=== PATIENT | male | born 1955 | race American Indian/Alaskan Native ===

== ENCOUNTER 2021-05-07 12:50 | Emergency (ER) | payer OTHER ==
[~2021-05-07] VITALS: Ht 172.7 cm; Wt 45.4 kg
[2021-05-07 13:34] LABS: BASOPHILS ABSOLUTE AUTO 0.03 K/mm3 (0.00-0.23); BASOPHILS PERCENT AUTO 0 % (0-2); EOSINOPHILS ABSOLUTE AUTO 0.01 K/mm3 (0.00-0.68); EOSINOPHILS PERCENT AUTO 0 % (0-6); Hematocrit 32.7 % (37.0-53.0); Hemoglobin 10.2 g/dL (13.5-17.5); IMMATURE GRAN ABSOLUTE AUTO 0.09 K/mm3 (0.00-0.10); IMMATURE GRAN PERCENT AUTO 1 % (0-1); LYMPHOCYTES ABSOLUTE AUTO 1.25 K/mm3 (0.84-5.20); LYMPHOCYTES PERCENT AUTO 9 % (21-46); MONOCYTES ABSOLUTE AUTO 0.54 K/mm3 (0.16-1.47); MONOCYTES PERCENT AUTO 4 % (4-13); Mean Corpuscular HGB 24.9 pg (26.0-34.0); Mean Corpuscular HGB Conc 31.2 g/dL (31.5-36.5); Mean Corpuscular Volume 80 fL (80-100); Mean Platelet Volume 8.1 fL (9.1-12.4); NEUTROPHILS ABSOLUTE AUTO 12.65 K/mm3 (1.96-9.15); NEUTROPHILS PERCENT AUTO 87 % (41-73); Platelet Count 504 K/mm3 (150-400); RDW Coefficient Variation 17.6 % (11.7-14.2); RDW Standard Deviation 51.3 fL (35.1-46.3); White Blood Cell Count 14.57 K/mm3 (4.00-11.30)
[2021-05-07 13:58] LABS: Alanine Aminotransfer (ALT/SGP 11 U/L (12-78); Albumin, Blood 1.3 g/dL (3.4-5.0); Albumin/Globulin Ratio 0.2 (0.8-1.8); Alk Phos 130 U/L (50-136); Anion Gap 10 mmol/L (6-16); Aspartate Aminotrans (AST/SGOT 14 U/L (12-37); Bilirubin, Total 0.6 mg/dL (0.1-1.0); Blood Urea Nitrogen 12 mg/dL (8-24); Bun/Creatinine Ratio 14.6 (12.0-20.0); CO2, Blood 23 mmol/L (21-32); Chloride, Blood 101 mmol/L (98-108); Creatinine, Blood 0.82 mg/dL (0.60-1.20); Globulin, Blood 5.8 g/dL (2.2-4.0); Glomerular Filtration Rate >60 (60-); Glucose, Blood 117 mg/dL (70-99); Potassium, Blood 3.7 mmol/L (3.5-5.5); Sodium, Blood 134 mmol/L (136-145); Total Protein, Blood 7.1 g/dL (6.4-8.2)
== END 2021-05-07 19:05 | disposition home or self-care (01) ==
LOC: ER 12:50
PROVIDERS: Physician Assistant
DX: C20 Malignant neoplasm of rectum (principal); R64 Cachexia; Z68.1 Body mass index [BMI] 19.9 or less, adult
CPT/HCPCS: 74177; 80053; 85025; 99285-25; J7120; Q9967